=== PATIENT | female | born 1985 | race Caucasian/White ===

== ENCOUNTER 2018-10-01 19:21 | Emergency (ER) | payer OTHER ==
[~2018-10-01] VITALS: Ht 162.6 cm; Wt 59.0 kg
[2018-10-01 19:33] VITALS: BP 132/83
== END 2018-10-02 02:39 | disposition left against medical advice (07) ==
LOC: ER 20:05
DX: F90.9 Attention-deficit hyperactivity disorder, unspecified type (principal); Z53.21 Procedure and treatment not carried out due to patient leaving prior to being seen by health care provider

== ENCOUNTER 2018-10-07 10:00 | Emergency (ER) | payer OTHER ==
[~2018-10-07] VITALS: Ht 167.6 cm; Wt 60.0 kg
[2018-10-07 11:47] LABS: BASOPHILS % 0.6 % (0.0-2.0); EOSINOPHILS % 1.2 % (0.0-5.0); HEMATOCRIT. 40.7 % (36.0-48.0); HEMOGLOBIN. 13.4 g/dL (12.0-16.0); LYMPHOCYTES % 13.2 % (20.0-50.0); MEAN CORPUSCULAR HEMOGLOBIN 27.3 pg (28.0-32.0); MEAN CORPUSCULAR VOLUME 83.2 fL (81.0-99.0); MONOCYTES % 5.1 % (2.0-8.0); NEUTROPHILS % 79.9 % (40.0-76.0); PLATELET 295 x1000/uL (130-400); RED BLOOD CELL COUNT 4.89 mill/uL (4.2-5.4); RED CELL DISTRIBUTION WIDTH 17.1 % (11.6-14.6)
[2018-10-07 11:51] LABS: CHLORIDE 109 mEq/L (98-107)
[2018-10-07 12:04] LABS: ETHANOL BLOOD < 10 mg/dL
[2018-10-07 12:17] LABS: HCG SCREEN NEGATIVE
[2018-10-07 13:08] LABS: *AMPHETAMINES SCREEN URINE NEGATIVE (NEGATIVE); *BARBITURATES SCREEN URINE NEGATIVE (NEGATIVE); CANNABINOID URINE SCREEN NEGATIVE (NEGATIVE); PHENCYCLIDINE URINE SCREEN NEGATIVE (NEGATIVE)
[2018-10-07 13:09] LABS: *BENZODIAZEPINES SCREEN URINE NEGATIVE (NEGATIVE); *COCAINE SCREEN URINE NEGATIVE (NEGATIVE); METHADONE URINE SCREEN NEGATIVE (NEGATIVE); OPIATES URINE SCREEN NEGATIVE (NEGATIVE)
[2018-10-07 18:25] VITALS: BP 110/65
== END 2018-10-07 18:29 | disposition home or self-care (01) ==
LOC: ER 10:00
DX: R45.851 Suicidal ideations (principal); K21.9 Gastro-esophageal reflux disease without esophagitis; F31.9 Bipolar disorder, unspecified; F20.9 Schizophrenia, unspecified; Z88.1 Allergy status to other antibiotic agents; Z88.8 Allergy status to other drugs, medicaments and biological substances
CPT/HCPCS: 36415; 80048; 80305; 80307; 80320; 80329; 81025; 84703; 99284; G0480

== ENCOUNTER 2018-12-23 14:39 | Emergency (ER) | payer OTHER ==
[~2018-12-23] VITALS: Ht 160 cm; Wt 61.0 kg
[2018-12-23 15:51] LABS: BASOPHILS % 0.4 % (0.0-2.0); EOSINOPHILS % 1.6 % (0.0-5.0); HEMATOCRIT. 38.1 % (36.0-48.0); HEMOGLOBIN. 12.9 g/dL (12.0-16.0); LYMPHOCYTES % 17.6 % (20.0-50.0); MEAN CORPUSCULAR HEMOGLOBIN 29.1 pg (28.0-32.0); MEAN CORPUSCULAR VOLUME 86.2 fL (81.0-99.0); MEAN PLATELET VOLUME 7.8 fl (7.4-10.4); MONOCYTES % 9.1 % (2.0-8.0); NEUTROPHILS % 71.3 % (40.0-76.0); PLATELET 259 x1000/uL (130-400); RED BLOOD CELL COUNT 4.42 mill/uL (4.2-5.4); RED CELL DISTRIBUTION WIDTH 14.5 % (11.6-14.6)
[2018-12-23 15:57] LABS: CHLORIDE 110 mEq/L (98-107)
[2018-12-23 15:58] LABS: PROTHROMBIN TIME 10.6 sec (9.6-11.0)
[2018-12-23 16:14] LABS: HCG SCREEN NEGATIVE
[2018-12-23 16:28] LABS: CLARITY URINE TURBID (CLEAR); COLOR URINE RED (YELLOW); KETONES URINE NEGATIVE (NEGATIVE); LEUKOCYTE ESTERASE URINE TRACE (NEGATIVE); NITRITE URINE NEGATIVE (NEGATIVE); OCCULT BLOOD URINE 3+ (NEGATIVE); PROTEIN URINE TRACE (NEGATIVE); SPECIFIC GRAVITY URINE 1.021 (1.005-1.030)
[2018-12-23 17:09] VITALS: BP 104/68
== END 2018-12-23 17:30 | disposition home or self-care (01) ==
LOC: ER 15:21
DX: N93.9 Abnormal uterine and vaginal bleeding, unspecified (principal); F31.9 Bipolar disorder, unspecified; F20.9 Schizophrenia, unspecified; Z88.1 Allergy status to other antibiotic agents
CPT/HCPCS: 36415; 76857; 81025; 84703; 99284

== ENCOUNTER 2019-05-02 03:01 | Emergency (ER) | payer OTHER ==
[~2019-05-02] VITALS: Ht 165.1 cm; Wt 64.0 kg
[2019-05-02 05:15] LABS: BASOPHILS % 0.6 % (0.0-2.0); EOSINOPHILS % 1.1 % (0.0-5.0); HEMATOCRIT. 35.7 % (36.0-48.0); HEMOGLOBIN. 11.7 g/dL (12.0-16.0); LYMPHOCYTES % 23.5 % (20.0-50.0); MEAN CORPUSCULAR HEMOGLOBIN 26.6 pg (28.0-32.0); MEAN CORPUSCULAR VOLUME 80.9 fL (81.0-99.0); MONOCYTES % 10.4 % (2.0-8.0); NEUTROPHILS % 64.4 % (40.0-76.0); PLATELET 258 x1000/uL (130-400); RED BLOOD CELL COUNT 4.41 mill/uL (4.2-5.4); RED CELL DISTRIBUTION WIDTH 14.1 % (11.6-14.6)
[2019-05-02 05:18] LABS: CHLORIDE 106 mEq/L (98-107)
[2019-05-02 05:24] LABS: ETHANOL BLOOD < 10 mg/dL
[2019-05-02 05:29] LABS: CREATINE KINASE 23 IU/L (26-192)
[2019-05-02 05:46] LABS: CLARITY URINE CLOUDY (CLEAR); COLOR URINE YELLOW (YELLOW); KETONES URINE 1+ (NEGATIVE); LEUKOCYTE ESTERASE URINE NEGATIVE (NEGATIVE); NITRITE URINE NEGATIVE (NEGATIVE); OCCULT BLOOD URINE NEGATIVE (NEGATIVE); PROTEIN URINE NEGATIVE (NEGATIVE); SPECIFIC GRAVITY URINE 1.014 (1.005-1.030); UROBILINOGEN URINE 0.2 E.U./dL (0.2-1.0)
[2019-05-02 06:02] LABS: *COCAINE SCREEN URINE NEGATIVE (NEGATIVE); METHADONE URINE SCREEN NEGATIVE (NEGATIVE)
[2019-05-02 06:04] LABS: *AMPHETAMINES SCREEN URINE NEGATIVE (NEGATIVE); *BARBITURATES SCREEN URINE NEGATIVE (NEGATIVE); *BENZODIAZEPINES SCREEN URINE NEGATIVE (NEGATIVE); CANNABINOID URINE SCREEN NEGATIVE (NEGATIVE); OPIATES URINE SCREEN NEGATIVE (NEGATIVE); PHENCYCLIDINE URINE SCREEN NEGATIVE (NEGATIVE)
[2019-05-02 06:33] VITALS: BP 105/74
== END 2019-05-02 06:34 | disposition home or self-care (01) ==
LOC: ER 03:01
DX: F31.9 Bipolar disorder, unspecified (principal)
CPT/HCPCS: 36415; 80305; 80320; 81003; 81025; 82550; 84443; 99283; G0480

== ENCOUNTER 2020-03-09 23:36 | Emergency (ER) | payer OTHER ==
[~2020-03-09] VITALS: Ht 160 cm; Wt 66.0 kg
[2020-03-09 23:39] VITALS: BP 105/63
[2020-03-10] MEDS ORDERED: ACETAMINOPHEN 325MG TABLET PO ONE (00:15)
== END 2020-03-10 02:30 | disposition home or self-care (01) ==
LOC: ER 23:36
DX: M25.551 Pain in right hip (principal); D64.9 Anemia, unspecified; F20.9 Schizophrenia, unspecified; Z88.1 Allergy status to other antibiotic agents
CPT/HCPCS: 73502; 81025; 99283

== ENCOUNTER 2020-03-28 16:27 | Emergency (ER) | payer OTHER ==
[~2020-03-28] VITALS: Ht 167.6 cm; Wt 73.0 kg
[2020-03-28] MEDS ORDERED: LEXAPRO (16:32)
[2020-03-28] MEDS ORDERED: TRAZODONE (16:32)
[2020-03-28] MEDS ORDERED: LATUDA (16:32)
[2020-03-28 17:28] LABS: BASOPHILS % 0.6 % (0.0-2.0); EOSINOPHILS % 0.7 % (0.0-5.0); HEMATOCRIT. 35.3 % (36.0-48.0); HEMOGLOBIN. 11.5 g/dL (12.0-16.0); LYMPHOCYTES % 17.2 % (20.0-50.0); MEAN CORPUSCULAR HEMOGLOBIN 24.9 pg (28.0-32.0); MEAN CORPUSCULAR VOLUME 76.4 fL (81.0-99.0); MONOCYTES % 7.5 % (2.0-8.0); PLATELET 346 x1000/uL (130-400); RED BLOOD CELL COUNT 4.62 mill/uL (4.2-5.4); RED CELL DISTRIBUTION WIDTH 16.1 % (11.6-14.6)
[2020-03-28 17:44] LABS: CHLORIDE 108 mEq/L (98-107)
[2020-03-28 17:48] LABS: ETHANOL BLOOD < 10 mg/dL
[2020-03-28 17:57] LABS: CLARITY URINE TURBID (CLEAR); COLOR URINE DARK YELLOW (YELLOW); KETONES URINE NEGATIVE (NEGATIVE); LEUKOCYTE ESTERASE URINE 1+ (NEGATIVE); NITRITE URINE NEGATIVE (NEGATIVE); OCCULT BLOOD URINE 3+ (NEGATIVE); PROTEIN URINE 2+ (NEGATIVE); SPECIFIC GRAVITY URINE 1.035 (1.005-1.030)
[2020-03-28] MEDS ORDERED: LORAZEPAM 1MG TABLET PO ONE (18:15)
[2020-03-28] MEDS: TRAZODONE HCL 50MG TABLET PO SCH (21:00)
[2020-03-28] MEDS: HYDROXYZINE 25MG TABLET PO PRN (22:00)
[2020-03-29 10:22] LABS: *AMPHETAMINES SCREEN URINE NEGATIVE (NEGATIVE); *BARBITURATES SCREEN URINE NEGATIVE (NEGATIVE); *BENZODIAZEPINES SCREEN URINE NEGATIVE (NEGATIVE); *COCAINE SCREEN URINE NEGATIVE (NEGATIVE); CANNABINOID URINE SCREEN NEGATIVE (NEGATIVE)
[2020-03-29 10:23] LABS: METHADONE URINE SCREEN NEGATIVE (NEGATIVE); OPIATES URINE SCREEN NEGATIVE (NEGATIVE); PHENCYCLIDINE URINE SCREEN NEGATIVE (NEGATIVE)
[2020-03-29] MEDS: HYDROXYZINE 25MG TABLET PO PRN (21:51)
[2020-03-29] MEDS: TRAZODONE HCL 50MG TABLET PO SCH (21:51)
[2020-03-30] MEDS: TRAZODONE HCL 50MG TABLET PO SCH (22:48)
[2020-03-31] MEDS: TRAZODONE HCL 50MG TABLET PO SCH (21:31)
[2020-04-01 13:30] VITALS: BP 105/64
== END 2020-04-01 13:58 | disposition short-term general hospital (02) ==
LOC: ER 16:27
DX: F23 Brief psychotic disorder (principal); F91.8 Other conduct disorders; F32.9 Major depressive disorder, single episode, unspecified; R45.851 Suicidal ideations; Z88.1 Allergy status to other antibiotic agents; Z75.1 Person awaiting admission to adequate facility elsewhere
CPT/HCPCS: 36415; 80053; 80305; 80307; 80320; 80329; 81003; 85025; 93005; 99285; G0480

== ENCOUNTER 2020-05-19 18:07 | Emergency (ER) | payer OTHER ==
[~2020-05-19] VITALS: Ht 160 cm; Wt 68.2 kg
[~2020-05-19 18:07] MED LIST: LATUDA; LEXAPRO; TRAZODONE
[2020-05-19 18:12] VITALS: BP 116/78
== END 2020-05-19 19:26 | disposition left against medical advice (07) ==
LOC: ER 18:07
DX: Z53.21 Procedure and treatment not carried out due to patient leaving prior to being seen by health care provider (principal)

== ENCOUNTER 2020-05-19 19:45 | Emergency (ER) | payer OTHER ==
[~2020-05-19] VITALS: Ht 167.6 cm; Wt 77.0 kg
[2020-05-19] MEDS ORDERED: TRAZODONE HCL 50MG TABLET PO SCH (21:15)
[2020-05-19 21:59] LABS: BASOPHILS % 0.8 % (0.0-2.0); HEMATOCRIT. 34.1 % (36.0-48.0); HEMOGLOBIN. 11.1 g/dL (12.0-16.0); LYMPHOCYTES % 24.7 % (20.0-50.0); MEAN CORPUSCULAR HEMOGLOBIN 24.3 pg (28.0-32.0); MEAN CORPUSCULAR VOLUME 74.5 fL (81.0-99.0); MEAN PLATELET VOLUME 7.5 fl (7.4-10.4); MONOCYTES % 10.4 % (2.0-8.0); NEUTROPHILS % 63.1 % (40.0-76.0); PLATELET 332 x1000/uL (130-400); RED BLOOD CELL COUNT 4.58 mill/uL (4.2-5.4); RED CELL DISTRIBUTION WIDTH 17.4 % (11.6-14.6)
[2020-05-19 22:03] LABS: CHLORIDE 107 mEq/L (98-107)
[2020-05-19 22:05] LABS: CLARITY URINE CLEAR (CLEAR); COLOR URINE YELLOW (YELLOW); KETONES URINE 2+ (NEGATIVE); LEUKOCYTE ESTERASE URINE 1+ (NEGATIVE); NITRITE URINE NEGATIVE (NEGATIVE); OCCULT BLOOD URINE TRACE (NEGATIVE); PROTEIN URINE NEGATIVE (NEGATIVE); SPECIFIC GRAVITY URINE 1.023 (1.005-1.030); UROBILINOGEN URINE 0.2 E.U./dL (0.2-1.0)
[2020-05-19 22:06] LABS: ETHANOL BLOOD < 10 mg/dL
[2020-05-19 22:22] LABS: *BARBITURATES SCREEN URINE NEGATIVE (NEGATIVE); CANNABINOID URINE SCREEN NEGATIVE (NEGATIVE)
[2020-05-19 22:24] LABS: *AMPHETAMINES SCREEN URINE NEGATIVE (NEGATIVE); *BENZODIAZEPINES SCREEN URINE NEGATIVE (NEGATIVE); *COCAINE SCREEN URINE NEGATIVE (NEGATIVE); METHADONE URINE SCREEN NEGATIVE (NEGATIVE); OPIATES URINE SCREEN NEGATIVE (NEGATIVE); PHENCYCLIDINE URINE SCREEN NEGATIVE (NEGATIVE)
[2020-05-20 10:33] VITALS: BP 118/78
== END 2020-05-20 10:39 | disposition home or self-care (01) ==
LOC: ER 19:45
DX: Z76.0 Encounter for issue of repeat prescription (principal); F33.9 Major depressive disorder, recurrent, unspecified; R45.851 Suicidal ideations; R03.0 Elevated blood-pressure reading, without diagnosis of hypertension; D64.9 Anemia, unspecified; Z59.0 Homelessness; Z79.899 Other long term (current) drug therapy
CPT/HCPCS: 36415; 80053; 80305; 80320; 81003; 81025; 85025; 93005; 99284; G0480